=== PATIENT | female | born 1965 | race Caucasian/White ===

== ENCOUNTER 2020-06-04 08:22 | Day surgery (SDC) | payer MEDICAID ==
[~2020-06-04] VITALS: Ht 157.5 cm; Wt 95.5 kg
[2020-06-04 08:54] LABS: BASOPHILS 0.5 % (0-2); EOSINOPHILS 1.7 % (0-7); HEMATOCRIT 40.9 % (36.0-48.0); IMMATURE GRANULOCYTES 0.5 % (0-5); LYMPHOCYTES 24.3 % (15-50); MCH 29.2 pg (26.0-34.0); MCHC 31.8 g/dL (31.0-37.0); MCV 91.9 fL (80.0-100.0); MEAN PLATELET VOLUME 10.6 fL (7.4-10.4); MONOCYTES 5.9 % (2-11); NEUTROPHILS 67.1 % (40-80); PLATELET COUNT 274 10x3/uL (130-400); RBC 4.45 10x6/uL (4.00-5.40); RDW 13.1 % (11.5-14.5); WBC 11.1 10x3/uL (4.8-10.8)
[2020-06-04] MEDS ORDERED: AMITIZA24 MCG PO (09:01)
[2020-06-04] MEDS ORDERED: LIPITOR40 MG PO (09:02)
[2020-06-04] MEDS ORDERED: LISINOPRIL-HCT1 EAC4 PO (09:02)
[2020-06-04] MEDS ORDERED: LEVOXYL150 MCG PO (09:02)
[2020-06-04] MEDS ORDERED: OMEPRAZOLE20 M1 PO (09:03)
[2020-06-04] MEDS ORDERED: [UNRECOGNIZED DRUG - OTHER] PO (09:03)
[2020-06-04] MEDS ORDERED: IBUPROFEN800 MG PO (09:04)
[2020-06-04] MEDS ORDERED: TRULICITY1.5 MG/0.5 SC (09:04)
[2020-06-04] MEDS ORDERED: TRESIBA FL100 UNIT/1 SC (09:05)
[2020-06-04 09:10] LABS: ANION GAP 13.3 mmol/L (8-16); CALCIUM 9.2 mg/dL (8.5-10.1); CARBON DIOXIDE 27.9 mmol/L (21.0-32.0); POTASSIUM - SERUM 4.2 mmol/L (3.5-5.1)
[2020-06-04 09:13] VITALS: Ht 157.5 cm; Wt 95.5 kg
[2020-06-04 09:20] LABS: APTT 26.7 SECONDS (22.8-39.4); INR 0.96 (0.85-1.17); PROTIME 12.8 SECONDS (11.6-15.0)
--- NOTE | 2020-06-04 13:18 | NUR ---
1310 SEE POST PROCEDURE CHECKLIST FOR VITAL SIGN TRENDS. COLA SERVED. BEDREST
--- NOTE | 2020-06-04 13:28 | NUR ---
1325 SITE CDI, NO HEMATOMA, WHEN I GAVE PT HER DISCHARGE TIME, SHE STATES I CANNOT STAY HERE THAT LONG, I ALREADY HAVE PEOPLE HERE READYI TO PICK ME UP. I EXPLAINED THE CONCEPT OF POST PROCEDURE REST TIME TO KEEP FROM BLEEDING.
== END 2020-06-04 14:15 | disposition home or self-care (01) ==
LOC: D.SP 08:22 → D.CT 11:00 → D.SP 14:15
PROVIDERS: Radiology Vascular & Interventional Radiology; ATTEND Internal Medicine Hematology & Oncology
DX: D47.2 Monoclonal gammopathy (principal); N28.9 Disorder of kidney and ureter, unspecified; E11.9 Type 2 diabetes mellitus without complications; I10 Essential (primary) hypertension; E78.5 Hyperlipidemia, unspecified; E03.9 Hypothyroidism, unspecified; Z79.4 Long term (current) use of insulin